=== PATIENT | female | born 1960 | race Caucasian/White ===

== ENCOUNTER 2021-02-15 22:47 | Emergency (ER) | payer OTHER ==
[~2021-02-15] VITALS: Ht 162.6 cm; Wt 97.1 kg
[~2021-02-15 22:47] MED LIST: MARIJUANA; Norco 5-325 Ta1 EACH PO; SIMV40; Zofran4 MG PO
[2021-02-16] MEDS ORDERED: ROSU5 PO (00:13)
[2021-02-16] MEDS ORDERED: LEVSOD137 PO (00:14)
[2021-02-16] MEDS ORDERED: SERT100 PO (00:14)
[2021-02-16] MEDS ORDERED: OMEP20ER PO (00:14)
[2021-02-16] MEDS ORDERED: SYMBICORT 80-46.9 GM (00:15)
== END 2021-02-16 02:21 | disposition home or self-care (01) ==
LOC: ER 22:47
DX: R51.9 Headache, unspecified (principal); E78.00 Pure hypercholesterolemia, unspecified; J44.9 Chronic obstructive pulmonary disease, unspecified; F17.200 Nicotine dependence, unspecified, uncomplicated; Z79.899 Other long term (current) drug therapy; Z79.51 Long term (current) use of inhaled steroids; Z88.5 Allergy status to narcotic agent; Z88.6 Allergy status to analgesic agent
CPT/HCPCS: 36415; 96372; 96374; 96375; 99283; J1200; J1885; J2405; J3010; J3030; J7030

== ENCOUNTER 2024-12-01 19:36 | Emergency (ER) | payer MEDICARE, OTHER ==
[~2024-12-01] VITALS: Ht 162.6 cm; Wt 90.7 kg
[~2024-12-01 19:36] MED LIST changes: +DIVA250EC PO; +LEVSOD137 PO; +LIDO700A20 TOP; +OMEP20ER PO; +ROSU5 PO; +SERT100 PO; +SYMBICORT 80-46.9 GM
[2024-12-01] MEDS ORDERED: Peg/Electrolytes 4,000 ML BTL PO ONE (20:50)
[2024-12-01 21:01] VITALS: BP 161/90
== END 2024-12-01 21:05 | disposition home or self-care (01) ==
LOC: ER 19:36
DX: K59.00 Constipation, unspecified (principal); J44.9 Chronic obstructive pulmonary disease, unspecified; E78.00 Pure hypercholesterolemia, unspecified; F17.200 Nicotine dependence, unspecified, uncomplicated; Z79.51 Long term (current) use of inhaled steroids; Z79.899 Other long term (current) drug therapy; Z88.6 Allergy status to analgesic agent; Z88.5 Allergy status to narcotic agent
CPT/HCPCS: 74018; 99284-25; A9270

== ENCOUNTER → 2025-09-03 | Outpatient (CLI) | payer MEDICARE, OTHER ==
[2025-09-03 12:25] LABS: Source, Urine Clean Catch
[2025-09-03 16:52] LABS: Red Blood Cells, Urine 0-2 /hpf (0-2)
[2025-09-03 23:38] LABS: Creatinine, Urine Random 145.0 mg/dL (27.00-270.00); Microalb/Creat Ratio UR, Rand 7.448 mg/g (0.000-30.000); Microalbumin, Random Urine 10.8 mg/L (0.000-20.000)
== END | disposition home or self-care (01) ==
LOC: LAB SHORT 12:23 → LAB 12:23 → LAB FUT 08-08 13:15 → EDSTATUS 08-08 13:15
PROVIDERS: Hospitalist
DX: N17.9 Acute kidney failure, unspecified (principal); N18.31 Chronic kidney disease, stage 3a; N39.0 Urinary tract infection, site not specified
CPT/HCPCS: 81015; 82043; 82570; 87086